=== PATIENT | female | born 1980 | race Caucasian/White ===

== ENCOUNTER → 2017-10-17 | Outpatient (CLI) | payer BC ==
--- NOTE | 2017-10-22 11:03 | MAM ---
EXAM DESCRIPTION: 3D Screening BILATERAL : Digital Mammography. CLINICAL HISTORY: 37 years Female SCREENING pain in left breast differing characteristics. No family history breast cancer. No HRT. No prior breast procedures. COMPARISON: Baseline study at this facility. No prior reports available. TECHNIQUE: Bilateral CC and MLO projection full-field images, 3-D tomosynthesis digital mammographic technique. Also bilateral synthesized CC/ MLO full-field images. CAD not utilized. FINDINGS: The breast parenchymal density pattern is: Scattered areas of fibroglandular density. No skin thickening or nipple retraction . Focal asymmetry in the retroareolar right breast 600 clock position in the anterior third, approximately 3 cm from the nipple. Not associated with calcifications. Focal asymmetry in the posterior third of the left breast at the 300-330 clock position, near the chest wall. Second area of focal asymmetry in the middle third of the left breast upper outer quadrant at the 200 clock position approximately 11 cm from the nipple. These regions are not associated with calcifications. IMPRESSION: BI-RADS CATEGORY: 0 - INCOMPLETE- Need additional imaging evaluation. FOLLOW-UP: Recall for additional imaging: Bilateral 3-D tomosynthesis full field LM images. Bilateral 2-D digital full field CC images. Targeted bilateral breast ultrasound.. Written communication concerning the IMPRESSION and Follow-up, will be mailed to the patient and referring health care provider. Electronically signed by: Antoine Langston MD 10/22/2017 11:02 AM CDT
== END ==
LOC: MAMMO 14:46
PROVIDERS: ATTEND Family Medicine
DX: Z12.31 Encounter for screening mammogram for malignant neoplasm of breast (principal)

== ENCOUNTER → 2017-10-17 | Outpatient (CLI) | payer BC | LOC: GMAB 11:05 | PROVIDERS: ATTEND Family Medicine | DX: Z00.01 Encounter for general adult medical examination with abnormal findings (principal) ==

== ENCOUNTER → 2017-11-01 | Outpatient (CLI) | payer BC ==
--- NOTE | 2017-11-01 12:58 | MAM ---
EXAM DESCRIPTION: 3D Diagnostic, Bilateral: Digital Mammography CLINICAL HISTORY: 37 yearsFemaleABNORMAL MAMMOGRAM . Focal asymmetry bilateral breasts.. COMPARISON: 3-D tomosynthesis screening bilateral mammogram 10/17/2017. Bilateral targeted breast ultrasound following this examination. Report from prior examination also reviewed. TECHNIQUE: Bilateral LM projection full-field images, 3-D tomosynthesis digital mammographic technique. Also bilateral synthesized LM full-field images. Bilateral 2-D CC full-field images. CAD not utilized. FINDINGS: The breast parenchymal density pattern is: Scattered areas of fibroglandular density. No skin thickening or nipple retraction . Again noted is focal asymmetry in the retroareolar right breast 600 clock position approximately 3 cm from the nipple. Also focal asymmetry in the posterior third of the left breast at the 200-300 clock position near the chest wall. And at the 200 clock position nearby breast tissues near the chest wall. No focal asymmetry seen on the LM images. Ultrasound: Scanning at the 1200 clock position of the right breast, 4 cm from the nipple. Mixed echogenicity structure with well-defined marcial and mixed posterior features. Parallel orientation. Dimensions 7.2 x 4.5 cm. Echogenic center with vascularity consistent with a lymph node. No distinct solid mass or discrete cyst. No skin changes. No parenchymal edema or large calcifications. Surrounded by predominantly fatty tissue. Scanning at the 200 clock position of left breast in the posterior third. Hypoechoic oval-shaped structure with well marginated marcial, parallel orientation, and mixed posterior acoustic features. Minimal echogenicity centrally but not vascular. No distinct solid mass or cyst. No skin changes. No parenchymal edema or large calcifications. Surrounding heterogeneous fibroglandular tissue. IMPRESSION: BI-RADS CATEGORY: 2 - BENIGN FINDINGS. FOLLOW UP: Return to routine digital bilateral screening, one year interval from October 2017. (The patient will be 38 years old.) The FINDINGS and the FOLLOW-UP plan were reviewed in person with the patient after the examination. Written communication explaining the IMPRESSION and FOLLOW-UP will be mailed to the patient and referring care provider. According to the [employer], yearly mammograms are recommended starting at age 40 and continuing as long as a woman is in good health. Any breast change noted on a breast self-exam should be reported promptly to the patient's healthcare provider. Breast MRI is recommended for women with an approximately 20-25% or greater lifetime risk of breast cancer, including women with a strong family history of breast or ovarian cancer and women who have been treated for Hodgkin's disease. A negative mammographic report should not delay tissue diagnosis in patients with significant clinical history or physical findings. Extremely dense breast tissue limits the sensitivity of digital mammography. Electronically signed by: Antoine Langston MD 11/01/2017 12:56 PM CDT
--- NOTE | 2017-11-01 13:00 | US ---
EXAM DESCRIPTION: Breast,Bilateral: Ultrasound CLINICAL HISTORY: 37 yearsFemaleABN MAMMO. Bilateral breast focal asymmetry. COMPARISON: Digital 3-D tomosynthesis diagnostic bilateral breast on this visit. 3-D tomosynthesis bilateral screening study on 10/17/2017. Other TECHNIQUE: Transcutaneous scanning of the bilateral breasts utilizing two-dimensional and Doppler modes. Scanning performed by the accountant budget and Dr. Langston. FINDINGS: Scanning at the 1200 clock position of the right breast, 4 cm from the nipple. Mixed echogenicity structure with well-defined marcial and mixed posterior features. Parallel orientation. Dimensions 7.2 x 4.5 cm. Echogenic center with vascularity consistent with a lymph node. No distinct solid mass or discrete cyst. No skin changes. No parenchymal edema or large calcifications. Surrounded by predominantly fatty tissue. Scanning at the 200 clock position of left breast in the posterior third. Hypoechoic oval-shaped structure with well marginated marcial, parallel orientation, and mixed posterior acoustic features. Minimal echogenicity centrally but not vascular. No distinct solid mass or cyst. No skin changes. No parenchymal edema or large calcifications. Surrounding heterogeneous fibroglandular tissue. IMPRESSION: 1. Bi-Rads Category 2: Benign. 2. Please refer to bilateral diagnostic 3-D tomosynthesis mammographic examination and report on this visit. The FINDINGS and the FOLLOW-UP plan were reviewed in person with the patient after the examination. Written communication explaining the IMPRESSION and FOLLOW-UP will be mailed to the patient and referring care provider. Electronically signed by: Antoine Langston MD 11/01/2017 12:58 PM CDT
== END ==
LOC: MAMMO 09:56
PROVIDERS: ATTEND Family Medicine
DX: R92.8 Other abnormal and inconclusive findings on diagnostic imaging of breast (principal)
CPT/HCPCS: 76641; 77066; G0279

== ENCOUNTER → 2018-05-07 | Outpatient (CLI) | payer BC, OTHER ==
--- NOTE | 2018-05-07 13:47 | US ---
EXAM DESCRIPTION: Chest: ULTRASOUND. CLINICAL HISTORY: CHEST PAIN . Chest lump between breasts. COMPARISON: None Available. TECHNIQUE: Transcutaneous scanning: [place]-scale and Doppler modes. FINDINGS: Scanning between the patient's breasts anterior midline. Tissue is mostly fatty echotexture. Oval-shaped mass with similar architecture slightly more echogenic measures 2.7 x 2.0 x 3.3 cm and corresponds to palpable mass. Nonvascular. Parallel orientation and no posterior echo signature. Capsule not well-defined. No homogeneous solid mass or cyst. No parenchymal edema or large calcifications. No abnormal vascularity. IMPRESSION: 3.3 cm mass is most likely a lipoma in the midline between patient's breasts. No fluid collection. No abnormal vascularity. Electronically signed by: Antoine Langston MD 05/07/2018 1:45 PM CDT
== END ==
LOC: US 09:02
PROVIDERS: ATTEND Nurse Practitioner Family
DX: R07.82 Intercostal pain (principal); R07.89 Other chest pain; R22.2 Localized swelling, mass and lump, trunk

== ENCOUNTER → 2019-06-23 | Outpatient (CLI) | payer OTHER ==
--- NOTE | 2019-06-24 11:53 | MAM ---
EXAM DESCRIPTION: 3D Diagnostic, Bilateral: Digital Mammography CLINICAL HISTORY: 39 yearsFemaleMAMMO ABN pain and numbness around an under the left breast with discoloration of the skin underneath left breast. No personal or family history of breast cancer. Menarche age 9. Childbirth. Premenopausal. No HRT.. Lifetime risk of developing breast cancer (Tyrer-Cuzick model) percentage is 9.8. COMPARISON: Bilateral screening digital breast tomosynthesis 17 October 2017 and bilateral diagnostic breast tomosynthesis with ultrasound October.. . TECHNIQUE: Bilateral LM, MLO, and CC projection full-field images, digital mammographic tomosynthesis technique. Bilateral 2-D digital full-field MLO images. LM, MLO and CC projection. CAD not utilized. FINDINGS: The breast parenchymal density pattern is: Scattered areas of fibroglandular density. No skin thickening or nipple retraction bilateral solitary microcalcifications. No new focal, stellate mass or density, focal asymmetry , and no suspicious microcalcifications bilaterally. Stable mammograms compared to prior study, taking into account differences in mammographic technique IMPRESSION: Benign exam. BIRAD CATEGORY: 2 BENIGN FINDINGS. RECOMMENDATIONS: FOLLOW UP: Routine digital bilateral mammographic screening, one year interval from June 2019. Written communication explaining the IMPRESSION and follow-up, will be mailed to the patient and referring health care provider. According to the [employer], yearly mammograms are recommended starting at age 40 and continuing as long as a woman is in good health. Any breast change noted on a breast self-exam should be reported promptly to the patient's healthcare provider. Breast MRI is recommended for women with an approximately 20-25% or greater lifetime risk of breast cancer, including women with a strong family history of breast or ovarian cancer and women who have been treated for Hodgkin's disease. A negative mammographic report should not delay tissue diagnosis in patients with significant clinical history or physical findings. Extremely dense breast tissue limits the sensitivity of digital mammography. Electronically signed by: Antoine Langston MD 06/24/2019 11:51 AM [facility]
== END ==
LOC: MAMMO 08:34
PROVIDERS: ATTEND Nurse Practitioner Family
DX: R92.8 Other abnormal and inconclusive findings on diagnostic imaging of breast (principal)
CPT/HCPCS: 77066; G0279